=== PATIENT | female | born 1990 | race Two or more races ===

== ENCOUNTER 2024-06-06 14:31 | Outpatient (CLI) | payer OTHER ==
[~2024-06-06 14:31] MED LIST: PRENATAL + DHA1 EAC1
== END 2024-06-06 15:59 | disposition home or self-care (01) ==
LOC: NST 14:31
PROVIDERS: ATTEND Obstetrics & Gynecology Maternal & Fetal Medicine
DX: Z34.83 Encounter for supervision of other normal pregnancy, third trimester (principal)

== ENCOUNTER 2024-06-08 20:08 | Emergency (ER) | payer OTHER ==
[~2024-06-08] VITALS: Ht 165.1 cm; Wt 186.0 kg
[2024-06-08] MEDS ORDERED: IPRATROPIUM/ALBUTEROL SULFATE 3 ML AMPUL.NEB IH SCH (23:00)
[2024-06-08] MEDS ORDERED: METHYLPREDNISOLONE SOD SUCC 125 MG VIAL IV ONE (23:00)
[2024-06-08] MEDS ORDERED: GUAIFENESIN 200 MG/10 ML BLIST.PACK PO ONE (23:00)
[2024-06-08] MEDS ORDERED: BENZONATATE 100 MG CAPSULE PO ONE (23:00)
[2024-06-09] MEDS ORDERED: METHYLPREDNISOLONE SOD SUCC 125 MG VIAL IV STA (03:31)
[2024-06-09] MEDS ORDERED: IPRATROPIUM/ALBUTEROL SULFATE 3 ML AMPUL.NEB IH STA (03:32)
[2024-06-09] MEDS ORDERED: HYDROCODONE/CHLORPHEN P-STIREX 5 ML ML PO STA (03:33)
== END 2024-06-09 06:22 | disposition home or self-care (01) ==
LOC: ER 20:08
DX: J45.909 Unspecified asthma, uncomplicated (principal)

== ENCOUNTER 2024-06-19 12:52 | Outpatient (CLI) | payer OTHER | END 2024-06-19 13:19 | disposition home or self-care (01) | LOC: NST 12:52 | PROVIDERS: ATTEND Obstetrics & Gynecology Gynecology | DX: Z34.83 Encounter for supervision of other normal pregnancy, third trimester (principal) ==

== ENCOUNTER 2024-06-21 03:21 | Inpatient (IN) | payer OTHER ==
[~2024-06-21] VITALS: Ht 165.1 cm; Wt 200.5 kg
[2024-06-21] MEDS ORDERED: MORPHINE SULFATE 4 MG/ML VIAL IV PRN (03:30)
[2024-06-21] MEDS ORDERED: AMPICILLIN SODIUM 2,000 MG VIAL IV ONE (03:30)
[2024-06-21] MEDS ORDERED: OXYTOCIN 500 ML IV SCH (03:30)
[2024-06-21] MEDS ORDERED: RINGERS SOLUTION,LACTATED 1,000 ML IV SCH (03:30)
[2024-06-21] MEDS ORDERED: AMPICILLIN SODIUM 2,000 MG VIAL ONE (03:38)
[2024-06-21 04:32] LABS: URINE APPEARANCE Cloudy; URINE BILIRRUBIN Negative (NEGATIVE); URINE BLOOD Negative; URINE COLOR Dark Yellow; URINE GLUCOSE Negative (NEGATIVE); URINE LEUKOCYTE Small; URINE NITRATE Negative
[2024-06-21 04:36] LABS: HEMATOCRIT 35.2 % (36.0-45.00); HEMOGLOBIN 11.9 g/dL (12.0-15.00); MEAN CELL VOLUME 82.4 fL (80.00-100.00); MEAN CORPUSCULAR HEMOGLOBIN 27.8 pg (27.00-32.0); MEAN CORPUSCULAR HGB CONC 33.7 g/dl (32.0-36.0); PLATELET COUNT 285 K/uL (150-450); RED BLOOD COUNT 4.27 M/uL (4.00-6.00); RED CELL DISTRIBUTION WIDTH 15.2 % (11.5-14.5); URINE BACTERIA 8018.6 uL (0.0-1933); URINE EPITHELIAL CELLS 120.4 uL (0.0-38.8); URINE RBC 41.9 uL (0.0-20.8); URINE WBC 580.4 uL (0.0-23.2)
[2024-06-21 04:55] LABS: INR < 0.93; PARTIAL THROMBOPLASTIN TIME 28.2 SECONDS (22.0-34.0); PROTHROMBIN TIME 9.7 SECONDS (9.0-11.5)
[2024-06-21 05:00] LABS: ALBUMIN 2.3 gm/dL (3.4-5.0); BILIRUBIN TOTAL 0.28 mg/dL (0.3-1.2); CALCIUM 8.9 mg/dL (8.5-10.1); CREATININE SERUM 0.58 mg/dL (0.55-1.02); GLOBULINA 3.7 G/DL (2.4-3.5); POTASSIUM 3.95 mEq/L (3.5-5.1); URINE PROTEIN 300 (NEGATIVE)
[2024-06-21 05:01] LABS: URINE MUCUS SCANT; URINE YEAST FEW /hpf
[2024-06-21] MEDS ORDERED: ZYRTEC10 M3 PO (05:06)
[2024-06-21] MEDS ORDERED: PROAIR RESPICL90 MCG IH (05:08)
[2024-06-21] MEDS ORDERED: OXYTOCIN 20 UNITS/500ML RL PIGGYBAG IV ONE (07:08)
[2024-06-21] MEDS ORDERED: AMPICILLIN SODIUM 1,000 MG VIAL ONE (07:32)
[2024-06-21] MEDS ORDERED: AMPICILLIN SODIUM 1,000 MG VIAL IV SCH (08:00)
[2024-06-21] MEDS ORDERED: MORPHINE SULFATE 4 MG/ML CARTRIDGE IV PRN (11:00)
[2024-06-21] MEDS ORDERED: ERYTHROMYCIN BASE 1 GM TUBE OP ONE (13:13)
[2024-06-21] MEDS ORDERED: OXYTOCIN 20 UNITS/1000ML RL PIGGYBAG IV ONE (13:14)
[2024-06-21] MEDS ORDERED: LIDOCAINE HCL 1% 10ML VIAL ONE (13:14)
[2024-06-21] MEDS ORDERED: CHLORHEXIDINE GLUCONATE 120 ML BOTTLE TOP ONE (13:14)
[2024-06-21] MEDS ORDERED: CHLORHEXIDINE GLUCONATE 120 ML BOTTLE TP SCH (16:30)
[2024-06-21] MEDS ORDERED: IBUprofen 400 MG TABLET PO PRN (16:30)
[2024-06-21] MEDS ORDERED: ERYTHROMYCIN BASE 1 GM TUBE OP SCH (16:30)
[2024-06-21] MEDS ORDERED: OXYTOCIN 1,000 ML IV SCH (16:30)
[2024-06-21] MEDS ORDERED: DOCUSATE SODIUM 100MG CAP PO SCH (17:00)
[2024-06-21] MEDS ORDERED: LIDOCAINE HCL 1% 10ML VIAL IJ ONE (18:15)
[2024-06-22 07:53] LABS: HEMATOCRIT 33.6 % (36.0-45.00); HEMOGLOBIN 11.2 g/dL (12.0-15.00); MEAN CELL VOLUME 83.3 fL (80.00-100.00); MEAN CORPUSCULAR HEMOGLOBIN 27.8 pg (27.00-32.0); MEAN CORPUSCULAR HGB CONC 33.3 g/dl (32.0-36.0); PLATELET COUNT 291 K/uL (150-450); RED BLOOD COUNT 4.03 M/uL (4.00-6.00)
[2024-06-22] MEDS ORDERED: PNV,CALCIUM 72/IRON/FOLIC ACID 1 TAB TABLET PO SCH (09:00)
== END 2024-06-23 15:12 | disposition home or self-care (01) | DRG 807 ==
LOC: LDR 03:21 → OB/GYN 17:20
PROVIDERS: Obstetrics & Gynecology Gynecology; ADMIT Obstetrics & Gynecology; ATTEND Obstetrics & Gynecology
PROC: 10E0XZZ Delivery of Products of Conception, External Approach (ICD-10-PCS; principal; 2024-06-21)
PROC: 0KQM0ZZ Repair Perineum Muscle, Open Approach (ICD-10-PCS; 2024-06-21)
PROC: 4A1HXCZ Monitoring of Products of Conception, Cardiac Rate, External Approach (ICD-10-PCS; 2024-06-21)
DX: O70.1 Second degree perineal laceration during delivery (principal); Z37.0 Single live birth; O69.81X0 Labor and delivery complicated by cord around neck, without compression, not applicable or unspecified; Z3A.38 38 weeks gestation of pregnancy; Z20.822 Contact with and (suspected) exposure to COVID-19